=== PATIENT | female | born 1980 | race Caucasian/White ===

== ENCOUNTER 2019-12-10 19:16 | Emergency (ER) | payer MEDICAID ==
[~2019-12-10] VITALS: Ht 165.1 cm; Wt 84.8 kg
[2019-12-10 19:27] VITALS: BP 132/76
[2019-12-10] MEDS ORDERED: KETOROLAC 30 MG/ML VIAL IVP ONE (19:50)
[2019-12-10] MEDS ORDERED: NACL 0.9% 1,000 ML IV ONE (19:50)
[2019-12-10 20:13] LABS: BASOPHILS # (AUTO) 0.1 K/uL (0.00-0.22); BASOPHILS % (AUTO) 0.5 % (0.0-2.0); EOSINOPHILS # (AUTO) 0.5 K/uL (0-0.4); EOSINOPHILS % (AUTO) 3.3 % (0.0-4.0); HEMATOCRIT 39.5 % (36-48); HEMOGLOBIN 12.8 g/dL (12.0-16.0); LYMPHOCYTES # (AUTO) 3.3 K/uL (2.5-16.5); LYMPHOCYTES % (AUTO) 23.5 % (20.5-51.1); MEAN CORPUSCULAR HEMOGLOBIN 27 pg (27-31); MEAN CORPUSCULAR HGB CONC 32 g/dL (33-37); MEAN CORPUSCULAR VOLUME 82.7 fL (80-94); MONOCYTES # (AUTO) 0.6 K/uL (0.8-1.0); MONOCYTES % (AUTO) 4.3 % (1.7-9.3); NEUTROPHILS # (AUTO) 9.7 K/uL (1.8-7.7); NEUTROPHILS % (AUTO) 68.4 % (42.2-75.2); PLATELET COUNT (AUTO) 320 K/uL (140-450); RED BLOOD CELL COUNT(AUTO) 4.78 MIL/uL (4.20-5.40); RED CELL DISTRIBUTION WIDTH 13.3 % (11.6-13.7); WHITE BLOOD COUNT (AUTO) 14.2 K/uL (4.8-10.8)
[2019-12-10 20:23] LABS: ANION GAP 13.1 (8-16); CARBON DIOXIDE 26.9 mmol/L (21-32)
[2019-12-10] MEDS ORDERED: INSULIN REGULAR, HUMAN 100 UNIT/ML VIAL IVP ONE (20:30)
[2019-12-10 21:25] VITALS: BP 135/61
== END 2019-12-10 21:25 | disposition home or self-care (01) ==
LOC: MED 19:16
DX: M25.571 Pain in right ankle and joints of right foot (principal); G89.29 Other chronic pain; E11.65 Type 2 diabetes mellitus with hyperglycemia; I10 Essential (primary) hypertension; F17.210 Nicotine dependence, cigarettes, uncomplicated; Z71.6 Tobacco abuse counseling
CPT/HCPCS: 36415; 80048; 82948; 85025; 96361; 96374; 96375; 99284; J1815; J1885; J7030

== ENCOUNTER 2021-08-17 15:42 | Emergency (ER) | payer MEDICAID ==
[~2021-08-17] VITALS: Ht 165.1 cm; Wt 73.0 kg
[2021-08-17 15:46] VITALS: BP 127/72
[2021-08-17] MEDS ORDERED: HYDROcodone/APAP 5/325 MG 1 TAB TAB PO ONE (16:20)
--- NOTE | 2021-08-17 17:23 | NUR ---
40 y/o F BIB self from home c/o bilateral LE pain, low back pain x 2-3 weeks. Pt also states RLQ pain 10/10, sharp/constant, non-radiating pain. Pt also states bilateral LE and low back pain 10/10. Pt denies medications prior to arrival. Pt denies fever, chills, SOB, chest pain, dysuria, n/v/d, constipation. Bed locked in lowest position, side rails x 1. PMH: DM2, HTN, HLD, insomnia, anxiety Meds: metformin, lisinopril, simvastatin, basgalar, admolog NKDA
--- NOTE | 2021-08-17 17:27 | NUR ---
Patient ambulated from bed 12 to chair A.
[2021-08-17 18:00] VITALS: BP 127/72
--- NOTE | 2021-08-17 18:00 | NUR ---
Patient discharged with v/s stable. Written and verbal after care instructions ABOUT DIABETIC NEUROPATHY given and explained. Patient verbalized understanding. Ambulatory with steady gait. All questions addressed prior to discharge. Advised to follow up with PMD.
== END 2021-08-17 18:00 | disposition home or self-care (01) ==
LOC: MED 15:42
DX: E11.40 Type 2 diabetes mellitus with diabetic neuropathy, unspecified (principal); I10 Essential (primary) hypertension; M79.604 Pain in right leg; M79.605 Pain in left leg; G89.29 Other chronic pain; F17.210 Nicotine dependence, cigarettes, uncomplicated
CPT/HCPCS: 99283